=== PATIENT | female | born 1995 | race Two or more races ===

== ENCOUNTER 2021-09-10 21:19 | Outpatient (CLI) | payer OTHER | END 2021-09-10 21:20 | disposition EMS.NT | LOC: EMS 21:19 | DX: S59.912A Unspecified injury of left forearm, initial encounter (principal); V49.9XXA Car occupant (driver) (passenger) injured in unspecified traffic accident, initial encounter; Y92.413 State road as the place of occurrence of the external cause ==

== ENCOUNTER 2021-09-10 22:42 | Emergency (ER) | payer OTHER ==
[2021-09-10 23:19] LABS: BASOPHILS # (AUTO) 0.1 10^3/uL (0.0-0.1); BASOPHILS % (AUTO) 0.6 %; EOSINOPHILS # (AUTO) 0.2 10^3/uL (0.0-0.7); EOSINOPHILS % (AUTO) 1.4 %; HCT - HEMATOCRIT 41.1 % (37.0-47.0); HGB - HEMOGLOBIN 13.9 g/dL (12.0-16.0); LYMPHOCYTES # (AUTO) 2.2 10^3/uL (1.5-3.5); LYMPHOCYTES % (AUTO) 17.4 %; MEAN CORPUSCULAR HEMOGLOBIN 29.3 pg (27.0-31.0); MEAN CORPUSCULAR HGB CONC 33.8 g/dL (32.0-36.0); MEAN CORPUSCULAR VOLUME 86.7 fL (81.0-99.0); MEAN PLATELET VOLUME 11.6 fL (7.9-10.8); MONOCYTES # (AUTO) 0.8 10^3/uL (0.0-1.0); MONOCYTES % (AUTO) 6.2 %; NEUTROPHILS # (AUTO) 9.4 10^3/uL (1.5-6.6); NEUTROPHILS % (AUTO) 74.2 %; PLT - PLATELET COUNT 296 10^3/uL (130-450); RED BLOOD COUNT 4.74 10^6/uL (4.20-5.40); RED CELL DISTRIBUTION WIDTH 13.2 % (12.0-15.0); WHITE BLOOD COUNT 12.6 x10^3/uL (4.8-10.8)
[2021-09-10] MEDS ORDERED: IOVERSOL 320 100 ML VIAL IVP ONE (23:19)
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
[2021-09-10 23:32] LABS: ALBUMIN 4.4 g/dL (3.2-5.5); ALBUMIN/GLOBULIN RATIO 1.3 (1.0-2.2); BILIRUBIN,TOTAL 0.2 mg/dL (0.2-1.0); CALCIUM 9.4 mg/dL (8.5-10.3); CREATININE 0.6 mg/dL (0.4-1.0); POTASSIUM 3.4 mmol/L (3.5-5.0); TOTAL PROTEIN 7.7 g/dL (6.7-8.2)
[2021-09-11] MEDS ORDERED: LIDOCAINE 2% 10 ML MDV SUBQ ONE (00:18)
[2021-09-11] MEDS ORDERED: ONDANSETRON 4 MG/2 ML VIAL IVP STA (00:34)
[2021-09-11] MEDS ORDERED: MORPHINE 2 MG/ML CARPUJECT IVP STA (00:34)
[2021-09-11 00:36] LABS: HCG UR QUAL NEGATIVE
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
[2021-09-11] MEDS ORDERED: HYDROcod/ACET 5/325 Prepack 4 PO STA (01:06)
[2021-09-11 01:08] VITALS: BP 130/92
--- NOTE | 2021-09-11 01:59 | XRAY Report ---
PROCEDURE: Wrist 2 View LT INDICATIONS: post splint TECHNIQUE: 2 views of the wrist were acquired. COMPARISON: Previous studies of the hand and wrist from 09/10/2021. FINDINGS: Bones: There is interval placement of an external splint. There is interval improved alignment statu s post closed reduction of a transverse fracture in the distal radius with decreased impaction and do rsal angulation. External splint limits evaluation of fine bony detail. Soft tissues: Splint also limits evaluation of the soft tissues. IMPRESSION: 1. Improved alignment status post closed reduction of distal radius fracture. Reviewed by: Thomas Roman MD on 09/11/2021 1:57 AM PDT Approved by: Thomas Roman MD on 09/11/2021 1:57 AM PDT Station ID: [id number]
== END 2021-09-11 01:28 | disposition home or self-care (01) ==
LOC: ED 22:42
DX: S52.532A Colles' fracture of left radius, initial encounter for closed fracture (principal); S52.612A Displaced fracture of left ulna styloid process, initial encounter for closed fracture; V43.52XA Car driver injured in collision with other type car in traffic accident, initial encounter
CPT/HCPCS: 25605; 36415; 73100; 73110; 73130; 74177; 80053; 81025; 85025; 96374; 96375; 99284; Q9967

== ENCOUNTER 2021-09-21 09:55 | Outpatient (CLI) | payer OTHER ==
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
== END 2021-09-21 09:56 | disposition home or self-care (01) ==
LOC: DI 09:55
PROVIDERS: ATTEND Physician Assistant
DX: S52.572A Other intraarticular fracture of lower end of left radius, initial encounter for closed fracture (principal); S52.612A Displaced fracture of left ulna styloid process, initial encounter for closed fracture

== ENCOUNTER 2021-10-01 10:00 | Outpatient (CLI) | payer OTHER ==
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
== END 2021-10-01 23:59 | disposition home or self-care (01) ==
LOC: DI.WOS 10:00
PROVIDERS: ATTEND Orthopaedic Surgery
DX: S52.532D Colles' fracture of left radius, subsequent encounter for closed fracture with routine healing (principal); S52.612D Displaced fracture of left ulna styloid process, subsequent encounter for closed fracture with routine healing

== ENCOUNTER 2021-10-22 08:19 | Outpatient (CLI) | payer OTHER ==
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
== END 2021-10-22 23:59 | disposition home or self-care (01) ==
LOC: DI.WOS 08:19
PROVIDERS: ATTEND Orthopaedic Surgery
DX: S52.532D Colles' fracture of left radius, subsequent encounter for closed fracture with routine healing (principal); S52.612D Displaced fracture of left ulna styloid process, subsequent encounter for closed fracture with routine healing